=== PATIENT | male | born 2000 | race Caucasian/White ===

== ENCOUNTER 2020-02-17 13:27 | Emergency (ER) | payer OTHER ==
[~2020-02-17] VITALS: Ht 170.2 cm; Wt 65.0 kg
[2020-02-17 14:24] VITALS: BP 114/75
== END 2020-02-17 14:23 | disposition home or self-care (01) ==
LOC: ER 13:27
DX: B34.9 Viral infection, unspecified (principal); J45.909 Unspecified asthma, uncomplicated
CPT/HCPCS: 99282

== ENCOUNTER 2020-03-06 13:53 | Emergency (ER) | payer OTHER ==
[~2020-03-06] VITALS: Ht 170.2 cm; Wt 62.8 kg
[2020-03-06 15:17] VITALS: BP 109/76
== END 2020-03-06 15:04 | disposition home or self-care (01) ==
LOC: ER 13:53
DX: H01.003 Unspecified blepharitis right eye, unspecified eyelid (principal); J45.909 Unspecified asthma, uncomplicated
CPT/HCPCS: 99281